=== PATIENT | female | born 1995 | race Two or more races ===

== ENCOUNTER 2022-07-17 11:14 | Emergency (ER) | payer OTHER ==
[~2022-07-17] VITALS: Ht 160 cm; Wt 65.9 kg
[2022-07-17] MEDS ORDERED: SODIUM CHLORIDE 0.9% 1,000 ML IVB ONE (11:30)
[2022-07-17] MEDS ORDERED: MORPHINE SULFATE INJ 2 MG/ml SYRG IV ONE (11:30)
[2022-07-17] MEDS ORDERED: PANTOPRAZOLE 40 MG/10 ML VIAL INJ IV ONE (11:30)
[2022-07-17] MEDS ORDERED: PROCHLORPERAZINE EDISYLATE 5 MG/ML 2ML VIAL IV ONE (11:30)
[2022-07-17 11:52] LABS: Basophils # (auto) 0.1 10 ^3/uL (0-0.2); Eosinophils # (auto) 0 10 ^3/uL (0-0.8); Eosinophils % (auto) 0.2 % (0.0-7.0); Lymphocytes # (auto) 1.1 10 ^3/uL (0.4-5.4); Monocytes % (auto) 5.4 % (0.0-12.0)
[2022-07-17 11:55] LABS: Basophils % (auto) 0.8 % (0.0-2.0); Hematocrit 35.2 % (36.0-46.0); Hemoglobin 10.8 g/dL (12.2-16.2); Lymphocytes % (auto) 17.6 % (10.0-50.0); Mean Corpuscular Hemoglobin 20.5 pg (28.0-32.0); Mean Corpuscular Hgb Conc. 30.8 g/dL (32.0-36.0); Mean Corpuscular Volume 66.6 fL (80.0-100.0); Monocytes # (auto) 0.3 10 ^3/uL (0-1.3); Neutrophils # (auto) 4.9 10 ^3/uL (1.6-8.6); Red Blood Cells 5.28 10^6/uL (4.0-5.20); Red Cell Distribution Width 18.7 % (11.8-14.3); White Blood Cell 6.5 10^3/uL (4.4-10.8)
[2022-07-17 12:15] LABS: Albumin 4.4 g/dL (3.4-5.0); Calcium 9.3 mg/dL (8.5-10.1)
[2022-07-17 12:20] LABS: BUN/Creatinine Ratio 8.4; Bilirubin, Total 0.5 mg/dL (0.2-1.0); Total Protein 8.7 g/dL (6.4-8.2)
[2022-07-17] MEDS ORDERED: ONDA-144 PO (12:41)
[2022-07-17] MEDS ORDERED: PANT40TA2 PO (12:41)
[2022-07-17 13:09] VITALS: BP 110/72
== END 2022-07-17 17:20 | disposition left against medical advice (07) ==
LOC: ER 11:14
DX: R11.2 Nausea with vomiting, unspecified (principal); J45.909 Unspecified asthma, uncomplicated; F17.210 Nicotine dependence, cigarettes, uncomplicated; Z79.899 Other long term (current) drug therapy
CPT/HCPCS: 36415; 76705; 80053; 82150; 83690; 85025; 96361; 96374; 96375; 99284; C9113; J0780; J2270; J7030